=== PATIENT | female | born 1965 | race Caucasian/White ===

== ENCOUNTER 2023-07-26 12:07 | Day surgery (SDC) | payer MEDICARE, MEDICAID ==
[2023-07-26] VITALS (16 sets, daily range): BP systolic 104–143; BP diastolic 50–95; PULSE 60–84; RESP 14–18; TEMP 98; O2SAT 96–100
[2023-07-26] MEDS ORDERED: ACET-1025 PO (12:57)
[2023-07-26] MEDS ORDERED: PANT20TA18 PO (12:57)
[2023-07-26] MEDS ORDERED: BUPR-72 PO (12:57)
[2023-07-26] MEDS ORDERED: TRAM50TA2 PO (12:57)
[2023-07-26] MEDS ORDERED: ALBU10.7 INH (12:57)
[2023-07-26 17:29] LABS: GLUCOSE,CSF 52 MG/DL (40-75); TOTAL PROTEIN,CSF 49 MG/DL (15-45)
[2023-07-26 17:49] LABS: APPEARANCE,CSF CLEAR; CSF RBC 420 /CU MM (0); CSF SUPERNATANT COLOR COLORLESS; CSF VOLUME 23 ML; CSF WBC CT 0 /CU MM (0-5); TUBE# COUNTED 3
[2023-07-28 12:16] LABS: IMMUNOGLOBULIN G, QN, SERUM 986 mg/dL (586-1602)
[2023-07-31 10:39] LABS: IMMUNOGLOBULIN G, QN CSF 1.9 mg/dL (0.0-6.7)
[2023-07-31 17:16] LABS: ANGIOTENSIN CONVERT ENZ, CSF <1.5 U/L (0.0-3.1); VDRL, CSF Non Reactive (Non Rea:<1:1)
== END 2023-07-26 16:45 | disposition home or self-care (01) ==
LOC: SSTAY O 12:07
PROVIDERS: ATTEND Psychiatry & Neurology Neurology
DX: R20.2 Paresthesia of skin (principal); R90.82 White matter disease, unspecified; F03.90 Unspecified dementia, unspecified severity, without behavioral disturbance, psychotic disturbance, mood disturbance, and anxiety; Z79.899 Other long term (current) drug therapy; Z90.49 Acquired absence of other specified parts of digestive tract; Z90.710 Acquired absence of both cervix and uterus; Z98.84 Bariatric surgery status; Z98.890 Other specified postprocedural states; F17.210 Nicotine dependence, cigarettes, uncomplicated; Z72.89 Other problems related to lifestyle; Z81.8 Family history of other mental and behavioral disorders
CPT/HCPCS: 36415; 62328; 77012; 82040; 82042; 82164; 82784; 82945; 83873; 83916; 84157; 86592; 89051

== ENCOUNTER 2023-11-06 12:10 | Emergency (ER) | payer MEDICARE, MEDICAID ==
[~2023-11-06] VITALS: Ht 157.5 cm; Wt 57.7 kg
[~2023-11-06 12:10] MED LIST: ACET-1025 PO; ALBU10.7 INH; BUPR-72 PO; PANT20TA18 PO; TRAM50TA2 PO
[2023-11-06 12:16] VITALS: BP 164/107; PULSE 90; O2SAT 100
[2023-11-06] MEDS ORDERED: ketorolac trometh inj. 60 MG/2 ML VIAL IM ONE (13:10)
[2023-11-06] MEDS ORDERED: orphenadrine citrate 60mg/2ml inj. IM ONE (13:10)
[2023-11-06] MEDS ORDERED: ondansetron 4mg rapidly disintigrating tab PO ONE (13:10)
[2023-11-06] MEDS ORDERED: ketorolac trometh. 30mg/ml inj. IM ONE (13:15)
[2023-11-06 13:48] LABS: BASOPHILS % (AUTO) 0.6 % (0-1); EOSINOPHILS # (AUTO) 0.1 X10'3 (0-0.9); EOSINOPHILS % (AUTO) 1.8 % (0-6); HEMATOCRIT 36.8 % (35.0-45.0); HEMOGLOBIN 12.1 g/dl (12.0-16.0); LYMPHOCYTES # (AUTO) 1.2 X10'3 (1.1-4.8); LYMPHOCYTES % (AUTO) 27.1 % (21-51); MEAN CORPUSCULAR HEMOGLOBIN 30.2 PG (27.0-31.0); MEAN CORPUSCULAR VOLUME 91.5 FL (78-98); MEAN PLATELET VOLUME 6.9 FL (7.4-10.4); MONOCYTES # (AUTO) 0.4 X10'3 (0-0.9); MONOCYTES % (AUTO) 8.1 % (2-12); NEUTROPHILS # (AUTO) 2.7 X10'3 (1.8-7.7); NEUTROPHILS % (AUTO) 62.4 % (42-75); PLATELET COUNT 265 X10'3 (140-440); RED BLOOD COUNT 4.02 X10'6 (4.20-5.60); WHITE BLOOD COUNT 4.4 X10'3 (4.5-11.0)
[2023-11-06 14:01] VITALS: RESP 16
[2023-11-06] MEDS: ketorolac tromethamine 15mg/ml inj. IM ONE (14:01)
[2023-11-06] MEDS: sulfamethoxazole/trimethoprim DS (800/160mg) tablet PO ONE (14:01)
[2023-11-06 14:02] LABS: ALBUMIN 3.1 G/DL (3.4-5.0); ANION GAP 3 (8-16); BLOOD UREA NITROGEN 17 MG/DL (7-18); BUN/CREATININE RATIO 28.3 (10.0-20.0); CALCIUM 8.2 MG/DL (8.5-10.1); CHLORIDE 104 MMOL/L (99-107); GLUCOSE 95 MG/DL (70-104); POTASSIUM 3.5 MMOL/L (3.5-5.1); SODIUM 137 MMOL/L (135-145); TOTAL CARBON DIOXIDE 29.8 MMOL/L (24-32); eCRCL 82 ML/MIN; eGFR > 90 ML/MIN
[2023-11-06] MEDS ORDERED: SULF1TAB49 PO (14:08)
[2023-11-06] MEDS ORDERED: ONDA8TAB13 PO (14:08)
[2023-11-06] MEDS: ondansetron 4mg rapidly disintigrating tab PO ONE (14:08)
[2023-11-06 14:41] VITALS: TEMP 98
== END 2023-11-06 14:44 | disposition home or self-care (01) ==
LOC: ER 12:11
DX: L03.211 Cellulitis of face (principal); B95.62 Methicillin resistant Staphylococcus aureus infection as the cause of diseases classified elsewhere; M54.50 Low back pain, unspecified; R11.2 Nausea with vomiting, unspecified; Z88.0 Allergy status to penicillin
CPT/HCPCS: 36415; 72100; 80048; 85025; 96372; 99284; J1885